=== PATIENT | female | born 1940 | race Caucasian/White ===

== ENCOUNTER 2018-01-05 16:15 | Inpatient (IN) | payer MEDICARE ==
[~2018-01-05] VITALS: Ht 152.4 cm; Wt 40.8 kg
[2018-01-05 16:52] LABS: URINE BLOOD DIPSTICK MODERATE (NEGATIVE); URINE COLOR YELLOW; URINE GLUCOSE - DIPSTICK NEGATIVE (NEGATIVE); URINE KETONE TRACE mg/dL (NEGATIVE); URINE NITRITE - DIPSTICK NEGATIVE (Negative); URINE PH 6.5 (4.5-8.0); URINE PROTEIN - DIPSTICK 30 mg/dL (NEG-TRACE); URINE UROBILINOGEN - DIPSTICK 0.2 E.U./dL (0.2)
[2018-01-05 16:57] LABS: URINE BILIRUBIN - DIPSTICK SMALL (NEGATIVE); URINE CLARITY CLOUDY; URINE LEUK ESTERASE LARGE (NEGATIVE)
[2018-01-05 16:59] LABS: URINE BACTERIA FEW hpf; URINE RBC 25-50 RBC/hpf (0-5); URINE SQUAMOUS EPITHELIAL CELL FEW EPI/hpf (0-FEW); URINE WBC TNTC WBC/hpf (0-5)
[2018-01-05 17:24] LABS: HEMATOCRIT 41.4 % (37.0-47.0); HEMOGLOBIN 13.6 g/dl (12.0-16.0); IMMATURE GRANULOCYTES 0.2 % (0.0-1.0); MEAN CELL VOLUME 94.5 fL CALC (80.0-100.0); MEAN CORPUSCULAR HGB 31.1 pG CALC (26.0-32.0); MEAN CORPUSCULAR HGB CONC 32.9 g/L CALC (32.0-36.0); NEUT# 3.08 thou/uL (2.00-7.15); RED BLOOD COUNT 4.38 mill/uL (4.20-5.60); RED CELL DISTRI WIDTH 13.2 % (11.5-15.5)
[2018-01-05 17:50] LABS: ALBUMIN 4.2 g/dL (3.2-5.0); ALKALINE PHOSPHATASE 86 u/l (38-126); ANION GAP 12 (6-22 (CALC)); BILIRUBIN, TOTAL 1.2 mg/dL (0.0-1.4); BUN 11 mg/dL (8-23); BUN/CREATININE RATIO 13 (12-20 (CALC)); CARBON DIOXIDE 27 mmol/l (22-30); CHLORIDE 103 mmol/l (95-108); CREATININE 0.8 mg/dL (0.5-1.0); GFR > 60 ML/MIN (>=60 (CALC)); GFR FOR AFR.AMER. > 60 ML/MIN (>=60 (CALC)); POTASSIUM 3.7 mmol/l (3.5-5.1); SGOT/AST 27 u/l (9-36); SGPT/ALT 25 u/l (11-66); SODIUM 138 mmol/l (137-146); TOTAL PROTEIN 7.5 g/dL (6.3-8.2)
[2018-01-05 18:51] LABS: TSH, 3RD GENERATION 1.12 uIU/mL (0.47 - 4.68)
[2018-01-05 19:15] VITALS: BP 148/91
[2018-01-06 04:04] VITALS: BP 107/64
[2018-01-06 07:22] VITALS: BP 135/73
[2018-01-06 07:50] LABS: HEMOGLOBIN 13.2 g/dl (12.0-16.0); IMMATURE GRANULOCYTES 0.3 % (0.0-1.0); MEAN CELL VOLUME 96.5 fL CALC (80.0-100.0); MEAN CORPUSCULAR HGB 31.1 pG CALC (26.0-32.0); MEAN CORPUSCULAR HGB CONC 32.2 g/L CALC (32.0-36.0); NEUT# 2.36 thou/uL (2.00-7.15); RED BLOOD COUNT 4.25 mill/uL (4.20-5.60); RED CELL DISTRI WIDTH 13.2 % (11.5-15.5)
[2018-01-06 08:09] LABS: ANION GAP 7 (6-22 (CALC)); BUN 8 mg/dL (8-23); BUN/CREATININE RATIO 12 (12-20 (CALC)); CARBON DIOXIDE 27 mmol/l (22-30); CHLORIDE 111 mmol/l (95-108); CREATININE 0.7 mg/dL (0.5-1.0); GFR > 60 ML/MIN (>=60 (CALC)); GFR FOR AFR.AMER. > 60 ML/MIN (>=60 (CALC)); POTASSIUM 3.8 mmol/l (3.5-5.1); SODIUM 141 mmol/l (137-146)
[2018-01-06 15:30] VITALS: BP 139/80
[2018-01-06 18:57] VITALS: BP 124/70
[2018-01-07 04:36] VITALS: BP 129/75
[2018-01-07 07:35] VITALS: BP 130/72
[2018-01-07 15:23] VITALS: BP 147/80
[2018-01-07 19:00] VITALS: BP 159/91
[2018-01-08 03:37] VITALS: BP 138/63
[2018-01-08 05:09] LABS: HEMATOCRIT 39.5 % (37.0-47.0); HEMOGLOBIN 12.9 g/dl (12.0-16.0); MEAN CORPUSCULAR HGB CONC 32.7 g/L CALC (32.0-36.0); RED BLOOD COUNT 4.16 mill/uL (4.20-5.60)
[2018-01-08 05:24] LABS: ANION GAP 8 (6-22 (CALC)); BUN 11 mg/dL (8-23); BUN/CREATININE RATIO 18 (12-20 (CALC)); CARBON DIOXIDE 30 mmol/l (22-30); CHLORIDE 106 mmol/l (95-108); CREATININE 0.6 mg/dL (0.5-1.0); GFR > 60 ML/MIN (>=60 (CALC)); GFR FOR AFR.AMER. > 60 ML/MIN (>=60 (CALC)); POTASSIUM 3.4 mmol/l (3.5-5.1); SODIUM 140 mmol/l (137-146)
[2018-01-08 07:12] VITALS: BP 123/67
[2018-01-08] MEDS ORDERED: KEFLEX500 M1 PO (13:06)
[2018-01-08] MEDS ORDERED: LORAZEPAM0.5 MG PO (13:06)
[2018-01-08 15:58] VITALS: BP 131/76
[2018-01-08 19:00] VITALS: BP 139/75
[2018-01-09 04:39] VITALS: BP 125/69
[2018-01-09 07:24] VITALS: BP 99/64
[2018-01-09 15:31] VITALS: BP 140/83
[2018-01-09 19:00] VITALS: BP 127/77
[2018-01-10 04:42] VITALS: BP 126/67
[2018-01-10 06:12] LABS: HEMATOCRIT 41.9 % (37.0-47.0); HEMOGLOBIN 13.4 g/dl (12.0-16.0); MEAN CELL VOLUME 96.5 fL CALC (80.0-100.0); MEAN CORPUSCULAR HGB 30.9 pG CALC (26.0-32.0); RED BLOOD COUNT 4.34 mill/uL (4.20-5.60); RED CELL DISTRI WIDTH 13.3 % (11.5-15.5)
[2018-01-10 07:22] VITALS: BP 118/73
[2018-01-10 14:55] VITALS: BP 140/79
[2018-01-10 19:50] VITALS: BP 135/73
== END 2018-01-10 22:00 | disposition home or self-care (01) | DRG 689 ==
LOC: EDPENDDISDT → EDPENDDISTM → ED 16:15 → ED-I 18:10 → ED 18:26 → MS2 18:27
PROVIDERS: Emergency Medicine; Nurse Practitioner Family; ADMIT Internal Medicine; ATTEND Internal Medicine
DX: N39.0 Urinary tract infection, site not specified (principal); G93.49 Other encephalopathy; G30.9 Alzheimer's disease, unspecified; F02.80 Dementia in other diseases classified elsewhere, unspecified severity, without behavioral disturbance, psychotic disturbance, mood disturbance, and anxiety; B96.20 Unspecified Escherichia coli [E. coli] as the cause of diseases classified elsewhere; E86.0 Dehydration; F32.9 Major depressive disorder, single episode, unspecified; R63.6 Underweight; Z91.83 Wandering in diseases classified elsewhere; Z68.25 Body mass index [BMI] 25.0-25.9, adult